=== PATIENT | female | born 1960 | race Caucasian/White ===

== ENCOUNTER → 2017-03-21 | Outpatient (CLI) | payer OTHER ==
[~2017-03-21] MED LIST: DULO60CA6 PO; METH10SO PO; NAPR-688 PO
--- NOTE | 2017-03-22 12:10 | RADRPT ---
PROCEDURE: Right knee radiographs. CLINICAL INDICATION: Right knee pain. TECHNIQUE: Two views. Frontal and lateral. COMPARISON: No prior studies are available for comparison. FINDINGS: There is no fracture or dislocation. There is a small joint effusion. There are severe degenerative changes of the right knee with medial joint compartment narrowing, sub articular sclerosis, and deformity. There is no lytic or blastic lesion. There is no joint effusion. IMPRESSION: 1. Severe degenerative changes of the right knee. 2. No acute abnormality. RPTAT: QQ .Oscar Girard MD, MD Date Time Electronically viewed and signed by .Oscar Girard MD, MD on 03/22/2017 12:09 .R/
--- NOTE | 2017-03-24 14:11 | HKNOTE ---
DATE OF SERVICE: 03/21/2017 CHIEF COMPLAINT: Right knee pain. HISTORY OF THE PRESENT ILLNESS: The patient is a 56-year-old female who is here for evaluation of r ight knee pain. The pain has been ongoing for a number of years. The patient has a history of rheu matoid arthritis and fibromyalgia. She has tried multiple treatments for her right knee including m edications, injections and physical therapy without relief. The pain has now reached a point where it is interfering with routine activities and the right knee is starting to give out. She is consid ering right total knee replacement and is here for further discussion. She had a left knee replacem ent about 2 years ago that was followed by a revision of her knee replacement for loosening of the p rosthesis. PAST MEDICAL HISTORY: Is significant for rheumatoid arthritis, left knee replacement followed by rev thomas. Multiple leg and foot procedures, hysterectomy as well as poor circulation in the lower extr emities. MEDICATIONS: Include: 1. Prednisone 2. Methotrexate. 3. Plaquenil. 4. Methadone. 5. [place]. 6. Vitamins. 7. Cymbalta. 8. Naproxen. REVIEW OF SYSTEMS: Positive for right knee pain, positive for edema of the legs, negative for chest pain or shortness of breath. Examination shows a pleasant female. She is awake, alert and orient ed. Walks with a limp on her right side. Examination of the lower extremities shows a healed incis ion on the left knee with somewhat limited range of motion from 5 to 95 degrees. On the right side, the knee has a significant varus deformity of about 15 degrees. Range of motion of the right knee is 10 to 105 with crepitus. There is severe medial joint line tenderness on the right side with addy e swelling. No instability is noted. Distal circulation is decreased. Pedal pulses are not palpab le. There is some skin discoloration on both legs suggestive of venous stasis and evidence of previ ous surgeries noted on the right ankle. X-rays of the right knee were reviewed and showed advanced osteoarthritis with complete loss of medial joint space and osteophyte formation. Osteopenia is not ed. ASSESSMENT AND PLAN: This is a 56-year-old female with rheumatoid arthritis and severe right knee p ain. She has evidence of osteoarthritis and RA and has reached a point where she wants to schedule a right knee replacement. Risks and benefits of this procedure were discussed with the patient incl uding the added risk of infection and complications due to her autoimmune disease and multiple medic ations. The medications will have to be coordinated with the universal grinder tool and her primary care ph ysician. She will be scheduled for a right knee replacement in the near future. Dictated By: BORIS ANDERSON/NTS Conf#: [id number] DID#: [id number]
== END | disposition home or self-care (01) ==
LOC: HKI 14:10
PROVIDERS: ATTEND Orthopaedic Surgery
DX: M06.9 Rheumatoid arthritis, unspecified (principal); M25.561 Pain in right knee; M17.11 Unilateral primary osteoarthritis, right knee; M85.861 Other specified disorders of bone density and structure, right lower leg; Z96.652 Presence of left artificial knee joint; Z90.710 Acquired absence of both cervix and uterus
CPT/HCPCS: 73560; G0463

== ENCOUNTER 2017-05-20 07:31 | Inpatient (IN) | payer OTHER ==
[~2017-05-20] VITALS: Ht 167.6 cm; Wt 90.2 kg
[2017-05-20] VITALS (26 sets, daily range): BP systolic 115–160; BP diastolic 62–87; PULSE 72–88; RESP 16–20; Ht 167.6 cm; Wt 90.2 kg
[~2017-05-20 07:31] MED LIST changes: +ROPIVACAINE 0.2% 60 ML, CLONIDINE 100 MCG, EPINEPHrine 0.3 MG, KETOROLAC 30 MG, SOD CHL... INJ SCH
--- NOTE | 2017-05-20 07:33 | HPN ---
Date/Time of Note Date/Time of Note DATE: 05/20/17 TIME: 07:33 Interval H&P Admission Note Pt. seen H&P reviewed: No system changes JOSH MCKEON PA-C May 20, 2017 07:33
[2017-05-20] MEDS ORDERED: POLYMYXIN B 500000 UNIT INJ ONE (08:22)
[2017-05-20] MEDS ORDERED: BACITRACIN 50000 UNITS INJ ONE (08:24)
[2017-05-20] MEDS ORDERED: SOD CHLORIDE 0.9% IRR SCH ×2 (08:30)
[2017-05-20] MEDS ORDERED: TRANEXAMIC ACID 1,000 MG in SOD CHLORIDE 0.9% 100 ML IVPB ONE ×4 (08:30)
[2017-05-20] MEDS ORDERED: ACETAMINOPHEN 1000MG/100ML IV 100 ML IVPB ONE (08:30)
[2017-05-20] MEDS ORDERED: DEXAMETHASONE 4 MG/ML 1 ML INJ IV ONE (08:30)
[2017-05-20] MEDS ORDERED: TRANEXAMIC ACID 1000 MG IRR SCH ×2 (08:30)
[2017-05-20] MEDS ORDERED: TRANEXAMIC ACID 1,000 MG in DEXTROSE 5% 100 ML IVPB ONE ×4 (08:30)
[2017-05-20] MEDS ORDERED: ONDANSETRON 4 MG INJ IV ONE (08:30)
[2017-05-20] MEDS ORDERED: LANSOPRAZOLE 30 MG CAP PO ONE (08:30)
[2017-05-20] MEDS ORDERED: FOLI-49 PO (08:35)
[2017-05-20] MEDS ORDERED: PRED2.5T3 PO (08:36)
[2017-05-20] MEDS ORDERED: HYDR200T5 PO (08:37)
[2017-05-20] MEDS ORDERED: MET25 PO (08:37)
[2017-05-20] MEDS ORDERED: METH10TA2 PO (08:39)
[2017-05-20] MEDS ORDERED: HYDR-902 PO (08:40)
[2017-05-20] MEDS ORDERED: [UNRECOGNIZED DRUG - CODE] PO (08:41)
[2017-05-20] MEDS ORDERED: CYAN100T PO (08:42)
[2017-05-20] MEDS ORDERED: CHOL500010 PO (08:43)
[2017-05-20] MEDS ORDERED: PREN-6 PO (08:44)
[2017-05-20] MEDS ORDERED: ALBUTEROL 0.083% (NEB) 2.5 MG/3 ML AMP HHN PRN (09:30)
[2017-05-20] MEDS ORDERED: KETOROLAC 30 MG INJ IV PRN ×2 (09:30→19:30)
[2017-05-20] MEDS ORDERED: OXYCODONE/ACETAMINOPHEN (5/325) TAB PO PRN ×2 (09:30)
[2017-05-20] MEDS ORDERED: ONDANSETRON 4 MG INJ IV PRN (09:30)
[2017-05-20] MEDS ORDERED: DIPHENHYDRAMINE 50 MG INJ IV PRN (09:30)
[2017-05-20] MEDS ORDERED: LABETALOL HCL 20MG INJ IV PRN (09:30)
[2017-05-20] MEDS ORDERED: EPHEDrine SULFATE 50 MG/5 ML SYG IV PRN (09:30)
[2017-05-20] MEDS ORDERED: MIDAZOLAM 1 MG/ML 2 ML INJ IV PRN (09:30)
[2017-05-20] MEDS ORDERED: METOCLOPRAMIDE 10 MG INJ IV PRN (09:30)
[2017-05-20] MEDS ORDERED: MEPERIDINE 25 MG INJ IV PRN (09:30)
[2017-05-20] MEDS ORDERED: FENTAnyl 50 MCG/ML VIAL IV PRN ×3 (09:30)
[2017-05-20] MEDS ORDERED: hydrALAzine 20 MG INJ IV PRN (09:30)
[2017-05-20] MEDS ORDERED: HYDROmorphONE (0.2 MG/ML) 10ML SYG IV PRN ×3 (09:30)
[2017-05-20] MEDS ORDERED: PROPOFOL 20 ML ONE (09:34)
[2017-05-20] MEDS ORDERED: MIDAZOLAM 1 MG/ML 2 ML INJ ONE (09:35)
[2017-05-20] MEDS ORDERED: HYDROCORTISONE 100 MG INJ ONE (09:36)
[2017-05-20] MEDS ORDERED: POLYMYXIN/BACITRACIN 1L IRRIG IRR ONE (10:40)
[2017-05-20] MEDS ORDERED: DEXAMETHASONE 4 MG/ML 1 ML INJ ONE (10:51)
[2017-05-20] MEDS ORDERED: LIDOCAINE 2% (SDV) 5 ML INJ ONE (10:51)
[2017-05-20] MEDS ORDERED: ROCURONIUM 50 MG INJ ONE (10:51)
[2017-05-20] MEDS ORDERED: ONDANSETRON 4 MG INJ ONE (10:51)
[2017-05-20] MEDS ORDERED: ROPIVACAINE 0.5 % 30 ML VIAL ONE (11:07)
--- NOTE | 2017-05-20 11:16 | RADRPT ---
PROCEDURE: X-ray Knee. CLINICAL INDICATION: Post op TECHNIQUE: One view of the right knee were obtained. COMPARISON: 03/21/2017. FINDINGS: Bone mineralization appears decreased. There are postsurgical changes of a knee arthroplasty. Osseous alignment is maintained. No acute fra cture or dislocation. There is soft tissue edema and gas. IMPRESSION: Postsurgical changes of a right knee arthroplasty. No acute osseous abnormality. RPTAT: AAEE Kelle Haas Physician Date Time Electronically viewed and signed by Kelle Haas Physician on 05/20/2017 11:16 PH/
--- NOTE | 2017-05-20 11:45 | SIPON ---
Date/Time of Note Date/Time of Note DATE: 05/20/17 TIME: 11:43 Operative Report Preoperative Diagnosis right knee DJD Postoperative Diagnosis same Operation/Procedure Performed right TKA Surgeon see signature line administrative library assistant Dr. Eb Parker Second assist: JOSH MCKEON PA-C Anesthesia: spinal Estimated blood loss: 150 - 200 ml's Transfusion Required none Specimen bone Grafts/Implants DePuy 6 femur, 5 tibia 10 poly, 38 patella Complications none BORIS HOFF May 20, 2017 11:45
[2017-05-20] MEDS ORDERED: NALOXONE (0.4 MG/ML) INJ IV PRN (12:00)
[2017-05-20] MEDS ORDERED: DIPHENHYDRAMINE 50 MG INJ IM PRN (12:00)
[2017-05-20] MEDS: ACETAMINOPHEN 1000MG/100ML IV 100 ML IVPB SCH ×2 (12:00→20:32)
[2017-05-20] MEDS ORDERED: oxyCODONE 5 MG TAB PO PRN ×2 (12:00)
[2017-05-20] MEDS: CEFAZOLIN 1 GM/50 ML (PMX) 50 ML IVPB SCH ×2 (12:00→21:03)
[2017-05-20] MEDS: ONDANSETRON 4 MG INJ IV SCH ×3 (12:00→23:57)
--- NOTE | 2017-05-20 12:08 | PDOCDIS ---
Discharge Instructions DIAGNOSIS Discharge Diagnosis Status post right total knee arthroplasty CONDITION Patient Condition: Good HOME CARE INSTRUCTIONS: Diet Instructions: Regular ACTIVITY: Activity Restrictions: Slowly Increase Activity Rest between Activity Avoid heavy lifting No Sexual Activity Do not Drive Do not operate Machinery Do not operate Power Tool Avoid Heavy Housework Keep Limb Elevated (2-3 pillows under the foot/ankle while resting. May use cold therapy over surgical dressing.) Weight Bearing (Weightbearing as tolerated with front wheeled walker.) Bathing Restrictions: Shower (Mepilex dressing to remain on until seen postoperatively. Keep surgical wound clean and dry.) FOLLOW UP/APPOINTMENTS Follow-up Plan Follow-up at postoperative appointment provided to you at your preoperative visit. JOSH MCKEON PA-C May 20, 2017 12:08
--- NOTE | 2017-05-20 14:17 | CONS ---
Date/Time of Note Date/Time of Note DATE: 05/20/17 TIME: 14:12 Assessment/Plan Assessment/Plan Problems: (1) Status post total right knee replacement Onset Date: ~ 05/20/2017 Status: Acute Comment: She is immediately postop and doing well. Orthopedic orders have been written by our orthopedic primary. Assuming that all goes well she has excellent rehabilitation potential. (2) Rheumatoid arthritis in remission Status: Chronic Comment: She will continue on her immunologic modulating therapy. I have written the medications. Please note that I do not expect adrenal insufficiency in this setting due to the low dose on the prednisone. (3) Systemic lupus erythematosus Status: Chronic Comment: Quiescent. Qualifiers: Qualified Code: M32.8 - Other forms of systemic lupus erythematosus, unspecified organ involvement status (4) HSV-2 (herpes simplex virus 2) infection Status: Chronic Comment: Continue with suppressive therapy. (5) Chronic pain syndrome Status: Chronic Comment: Continue with her outpatient pain medication regimen in a stable fashion which should make the inpatient regimen relatively straightforward Consultation Date/Type/Reason Admit Date/Time May 20, 2017 at 07:31 Date of Consultation: May 20, 2017 Type of Consultation: Internal medicine Reason for Consultation Postoperative assistance and medication coordination after right total knee replacement Referring Provider: BORIS HOFF Hx of Present Illness Charming 57-year-old female admitted after right total knee replacement. She has an extensive orthopedic history however this is her first significant intervention on the right. She is seen postoperatively on the floor and reports she is doing well. Constitutional: no complaints (Denies fevers chills or sweats) Eyes: no complaints ENT: no complaints Respiratory: no complaints Cardiovascular: no complaints Gastrointestinal: no complaints Genitourinary: no complaints Musculoskeletal: back pain Skin: no complaints Neurologic: no complaints Past Medical History Medical History: other (Rheumatoid arthritis; systemic lupus erythematosus; arthritis; chronic pain syndrome; history of HSV-2) Past Surgical History Past Surgical Hx: appendectomy, other (Status post tonsillectomy; status post laparotomy for ectopic ; status post hysterectomy; status post left total knee replacement; status post left total knee revision; status post right foot surgery with pins 3;) Family History Significant Family History: cancer, other (Parkinson's disease;) Social History Alcohol Use: rarely Smoking Status: Former smoker Drug Use: none Exam/Review of Systems Vital Signs Vitals Vital Signs Date Time Temp Pulse Resp B/P Pulse Ox O2 Delivery O2 Flow Rate FiO2 05/20/17 13:46 97.6 88 20 123/75 97 05/20/17 12:21 Room Air Exam Constitutional: alert, oriented Head: atraumatic, normocephalic Eyes: EOMI, PERRL, nl conjunctiva, nl lids, nl sclera ENMT: mucosa pink and moist, nl external ears & nose, nl lips & teeth, nl nasal mucosa & septum Neck: non-tender, supple Respiratory: clear to auscultation, normal air movement Cardiovascular: nl pulses, regular rate and rhythm Gastrointestinal: nl liver, spleen, non-tender, soft Extremities: normal pulses, other (Right knee bandaged.) Medications Medications Current Medications Ropivacaine/ Clonidine/ Epinephrine/ Ketorolac Tromethamine/ Sodium Chloride ( Naropin 0.2%/ Duraclon/ EPINEPHrine/ Toradol/NS) INTRA-OP INJ Last administered on 05/20/17 10:54; Admin Dose 112.3 ML; Start 05/20/17 at 06:30; Stop 05/20/17 at 23:00 Oxycodone HCl (Roxicodone) 15 mg Q4H PRN PO PAIN LEVEL 8-10; Start 05/20/17 at 12:00 Oxycodone HCl (Roxicodone) 10 mg Q4H PRN PO PAIN LEVEL 4-7; Start 05/20/17 at 12:00 Oxycodone HCl 5 mg 5 mg Q4H PRN PO PAIN LEVEL 1-3; Start 05/20/17 at 12:00 Acetaminophen (Ofirmev 1000mg/ 100ml Iv) 100 ml @ 400 mls/hr Q8H IVPB ; Start 05/20/17 at 12:00; Stop 05/22/17 at 04:14 Ondansetron HCl (Zofran Inj) 4 mg Q6H IV ; Start 05/20/17 at 12:00; Stop at 06:01 Ondansetron HCl 4 mg 4 mg Q4H PRN IV NAUSEA AND/OR VOMITING; Start 05/21/17 at 12:00 Cefazolin Sodium (Ancef 1 Gm/50 ml (Pmx)) 50 ml @ 100 mls/hr Q8H IVPB Last administered on 12/5/17at 12:00; Admin Dose 100 MLS/HR; Start 05/20/17 at 12:00 ; Stop 05/21/17 at 04:29 Aspirin (Ecotrin) 325 mg DAILY PO ; Start 05/21/17 at 09:00 Celecoxib (Celebrex) 200 mg BID PO ; Start 05/21/17 at 09:00 Docusate Sodium (Colace) 200 mg BID PO ; Start 05/21/17 at 09:00; Stop 05/24/17 at 08:59 Diphenhydramine HCl (Benadryl) 25 mg Q4H PRN IM ITCHING OR RASH; Start at 12:00 Naloxone HCl (Narcan) 0.2 mg Q2M PRN IV DECREASED REPIRATORY RATE; Start at 12:00 Hydromorphone HCl (Dilaudid) 1 mg Q3H PRN IV BREAKTHROUGH PAIN; Start 05/20/17 at 12:00 Miscellaneous Information (* Miscellaneous Pharmacy Order) Discontinue current oral sulfonylur... ONCE ONCE XX ; Start 05/20/17 at 14:30; Stop 05/20/17 at 14: 31; Status UNV Diagnostic Test (Pha) (Accu-Chek) 1 ea 02 XX ; Start 05/21/17 at 02:00; Status UNV Miscellaneous Information (* Miscellaneous Pharmacy Order) HYPOGLYCEMIA PROTOCOL w... ONCE ONCE XX ; Start 05/20/17 at 14:30; Stop 05/20/17 at 14:31; Status UNV Miscellaneous Information (* Miscellaneous Pharmacy Order) Discontinue all previ... ONCE ONCE XX ; Start 05/20/17 at 14:30; Stop 05/20/17 at 14:31; Status UNV Cholecalciferol (Vitamin D) 5,000 unit BID PO ; Start 05/20/17 at 21:00; Status UNV Cyanocobalamin (Vitamin B12) 100 mcg DAILY PO ; Start 05/21/17 at 09:00; Status UNV Duloxetine HCl (Cymbalta) 60 mg HS PO ; Start 05/20/17 at 21:00; Status UNV Folic Acid (Folic Acid) 1 mg DAILY PO ; Start 05/21/17 at 09:00; Status UNV Hydroxychloroquine Sulfate (Plaquenil) 200 mg BID PO ; Start 05/20/17 at 21:00; Status UNV Methadone HCl (Methadone) 30 mg TID PO ; Start 05/20/17 at 21:00; Status UNV Prednisone (Prednisone) 2.5 mg QAM PO ; Start 05/21/17 at 09:00; Status UNV Miscellaneous Information 1 tab DAILY PO ; Start 05/21/17 at 09:00; Status UNV LEE OLSON MD May 20, 2017 14:17
[2017-05-20] MEDS ORDERED: Discontinue current oral sulfonylureas (glyburide, glipizide, and/or glimepiride) prior to XX ONE (14:30)
[2017-05-20] MEDS: VALACYCLOVIR 500 MG TAB PO SCH (14:30)
[2017-05-20] MEDS: METHADONE 10 MG TAB PO SCH ×2 (14:53→20:34)
[2017-05-20] MEDS: HYDROmorphONE 1 MG/ML SYG IV PRN ×4 (14:55→23:57)
[2017-05-20] MEDS ORDERED: GLUCOSE GEL 15 GRAM TUBE PO PRN ×2 (15:00)
[2017-05-20] MEDS ORDERED: GLUCAGON 1 MG INJ IM PRN (15:00)
[2017-05-20] MEDS ORDERED: DEXTROSE 50% 50 ML SYRINGE IV PRN ×2 (15:00)
[2017-05-20] MEDS ORDERED: GLUCOSE GEL 15 GRAM TUBE BUCCAL PRN (15:00)
[2017-05-20] MEDS: oxyCODONE 5 MG TAB PO PRN (17:49)
[2017-05-20] MEDS ORDERED: INSULIN ASPART [NOVOLOG] 3 ML PEN SC SCH (17:55)
[2017-05-20] MEDS ORDERED: ACCU-CHEK XX SCH (19:55)
[2017-05-20] MEDS: CHOLECALCIFEROL 1,000 UNIT TAB PO SCH (20:32)
[2017-05-20] MEDS: DULOXETINE 30 MG CAP DR PO SCH (20:33)
[2017-05-20] MEDS: HYDROXYCHLOROQUINE 200 MG TAB PO SCH (20:34)
[2017-05-21] MEDS ORDERED: ACCU-CHEK XX SCH (02:00)
[2017-05-21] MEDS: ACETAMINOPHEN 1000MG/100ML IV 100 ML IVPB SCH ×4 (03:21→21:24)
[2017-05-21] MEDS: BACLOFEN 10 MG TAB PO PRN ×2 (03:55→22:18)
[2017-05-21] MEDS: CEFAZOLIN 1 GM/50 ML (PMX) 50 ML IVPB SCH (03:55)
[2017-05-21 05:24] LABS: ABNORMAL IP MESSAGE 1; BASOPHILS % 0.1 % (0.0-2.0); HEMATOCRIT 33.5 % (37.0-47.0); HEMOGLOBIN 11.2 g/dl (12.0-16.0); LYMPHOCYTES # 0.5 10^3/ul (0.8-2.9); LYMPHOCYTES % 4.8 % (15.0-51.0); MEAN CORPUSCULAR HEMOGLOBIN 32.2 pg (29.0-33.0); MEAN CORPUSCULAR HGB CONC 33.4 g/dl (32.0-37.0); MEAN CORPUSCULAR VOLUME 96.3 fl (82.0-101.0); MEAN PLATELET VOLUME 12.4 fl (7.4-10.4); MONOCYTE # 0.5 10^3/ul (0.3-0.9); MONOCYTES % 4.7 % (0.0-11.0); PLATELET COUNT 163 10^3/UL (140-415); RED BLOOD COUNT 3.48 10^6/ul (4.20-5.40); RED CELL DISTRIBUTION WIDTH 12.5 % (11.5-14.5); WHITE BLOOD COUNT 11.2 10^3/ul (4.8-10.8)
[2017-05-21 05:46] LABS: INR 0.93; PROTIME 12.6 Sec (11.9-14.9)
[2017-05-21 05:52] LABS: CALCIUM 9.3 mg/dl (8.4-10.2); CREATININE 0.74 mg/dl (0.44-1.00)
[2017-05-21] MEDS: ONDANSETRON 4 MG INJ IV SCH (06:18)
[2017-05-21 06:19] LABS: POSITIVE DIFF @See below
[2017-05-21] MEDS: HYDROmorphONE 1 MG/ML SYG IV PRN ×4 (07:36→22:18)
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
[2017-05-21 08:37] VITALS: BP 116/74; RESP 17
[2017-05-21] MEDS: PRENATAL VITAMIN PO SCH (08:45)
[2017-05-21] MEDS: VALACYCLOVIR 500 MG TAB PO SCH (08:45)
[2017-05-21] MEDS: CELECOXIB 200 MG CAP PO SCH ×2 (08:46→21:25)
[2017-05-21] MEDS: DOCUSATE SODIUM 100 MG CAP PO SCH ×2 (08:46→21:26)
[2017-05-21] MEDS: FOLIC ACID 1 MG TAB PO SCH (08:46)
[2017-05-21] MEDS: CYANOCOBALAMIN 100 MCG TAB PO SCH (08:46)
[2017-05-21] MEDS: CHOLECALCIFEROL 1,000 UNIT TAB PO SCH ×2 (08:46→21:25)
[2017-05-21] MEDS: predniSONE 2.5 MG TAB PO SCH (08:46)
[2017-05-21] MEDS: HYDROXYCHLOROQUINE 200 MG TAB PO SCH ×2 (08:46→21:25)
[2017-05-21] MEDS: METHADONE 10 MG TAB PO SCH ×3 (08:47→21:35)
[2017-05-21] MEDS: ASPIRIN (EC) 325 MG TAB PO SCH (08:50)
[2017-05-21] MEDS: oxyCODONE 5 MG TAB PO PRN ×3 (11:06→19:02)
[2017-05-21] MEDS ORDERED: ONDANSETRON 4 MG INJ IV PRN (12:00)
[2017-05-21] MEDS: PANTOPRAZOLE (EC) 40 MG TAB PO SCH (12:50)
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
[2017-05-21 15:54] VITALS: BP 107/69; RESP 19
[2017-05-21 19:14] VITALS: BP 115/65; RESP 18
[2017-05-21] MEDS: DULOXETINE 30 MG CAP DR PO SCH (21:26)
[2017-05-22] MEDS: oxyCODONE 5 MG TAB PO PRN ×2 (01:46→10:17)
[2017-05-22 01:50] VITALS: BP 134/76; RESP 16
[2017-05-22] MEDS: ACETAMINOPHEN 1000MG/100ML IV 100 ML IVPB SCH (03:25)
[2017-05-22] MEDS: HYDROmorphONE 1 MG/ML SYG IV PRN ×2 (03:32→08:30)
[2017-05-22 05:16] LABS: BASOPHILS % 0.4 % (0.0-2.0); EOSINOPHILS % 0.6 % (0.0-7.0); HEMATOCRIT 32.2 % (37.0-47.0); HEMOGLOBIN 10.7 g/dl (12.0-16.0); LYMPHOCYTES # 1.8 10^3/ul (0.8-2.9); LYMPHOCYTES % 24.6 % (15.0-51.0); MEAN CORPUSCULAR HEMOGLOBIN 32.3 pg (29.0-33.0); MEAN CORPUSCULAR HGB CONC 33.2 g/dl (32.0-37.0); MEAN CORPUSCULAR VOLUME 97.3 fl (82.0-101.0); MEAN PLATELET VOLUME 12.5 fl (7.4-10.4); MONOCYTE # 0.5 10^3/ul (0.3-0.9); MONOCYTES % 7.2 % (0.0-11.0); NEUTROPHIL # 4.8 10^3/ul (1.6-7.5); NEUTROPHILS % 66.9 % (39.0-77.0); PLATELET COUNT 135 10^3/UL (140-415); RED BLOOD COUNT 3.31 10^6/ul (4.20-5.40); WHITE BLOOD COUNT 7.1 10^3/ul (4.8-10.8)
[2017-05-22 05:30] LABS: INR 0.93; PROTIME 12.6 Sec (11.9-14.9)
[2017-05-22 05:47] LABS: CALCIUM 8.9 mg/dl (8.4-10.2); CREATININE 0.75 mg/dl (0.44-1.00); POTASSIUM 3.4 mmol/L (3.5-5.1)
[2017-05-22] MEDS: PANTOPRAZOLE (EC) 40 MG TAB PO SCH (05:57)
[2017-05-22 08:19] VITALS: BP 126/59; RESP 18
[2017-05-22] MEDS: PRENATAL VITAMIN PO SCH (08:28)
[2017-05-22] MEDS: predniSONE 2.5 MG TAB PO SCH (08:28)
[2017-05-22] MEDS: CHOLECALCIFEROL 1,000 UNIT TAB PO SCH (08:28)
[2017-05-22] MEDS: DOCUSATE SODIUM 100 MG CAP PO SCH (08:28)
[2017-05-22] MEDS: CYANOCOBALAMIN 100 MCG TAB PO SCH (08:29)
[2017-05-22] MEDS: FOLIC ACID 1 MG TAB PO SCH (08:29)
[2017-05-22] MEDS: METHADONE 10 MG TAB PO SCH (08:29)
[2017-05-22] MEDS: ASPIRIN (EC) 325 MG TAB PO SCH (08:30)
[2017-05-22] MEDS: CELECOXIB 200 MG CAP PO SCH (08:30)
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
[2017-05-22] MEDS: VALACYCLOVIR 500 MG TAB PO SCH (09:00)
[2017-05-22] MEDS: HYDROXYCHLOROQUINE 200 MG TAB PO SCH (10:17)
--- NOTE | 2017-05-22 16:01 | DS ---
Date/Time of Note Date/Time of Note DATE: 05/22/17 TIME: 15:59 Discharge Summary Admission/Discharge Info Admit Date/Time May 20, 2017 at 07:31 Discharge Date/Time May 22, 2017 at 11:49 Discharge Diagnosis Status post right total knee arthroplasty Patient Condition: Good Hospital Course On the day of admission, the patient underwent Right total knee Arthroplasty Intraoperative complications: None Postoperative complications: None The patient was given prophylactic antibiotics and anticoagulants. On the day of surgery and first postoperative day patient was started on gait training and was taught usual restrictions following Knee replacement On postoperative day 1 dressing was clean dry and intact. No complications were observed. On the day of discharge, the wound was clean and healing well; there was no sign of infection. Wound care instructions were discussed with the patient. Discharge Temperature: 97.7 Discharge White Blood Cell Count: 10.1 Discharge Hemoglobin: 7.7 The patient was discharged home with home health. Arrangements were made for visiting nurses and home health/physical therapy. The patient will be seen in office at scheduled postoperative evaluation date given on their preoperative exam. Should patient complain of any problems prior to scheduled postoperative evaluation date, they may call into outpatient clinic to determine if they need to be scheduled at sooner appointment to be seen immediately if needed. Discharge medications: As per medication reconciliation form Diet: Same as preadmission diet. This is Josh Mg PA-C dictating discharge summary for Dr. Pereyra. Home Meds Reported Medications Vits #93-Iron Fum-FA ( Formula) 1 Each Tablet, 1 TAB PO DAILY, TAB 05/20/17 Cholecalciferol (Vitamin D3) 5,000 Unit Tablet, 5000 UNIT PO BID, TAB 05/20/17 Cyanocobalamin* (Vitamin B-12*) 100 Mcg Tablet, 100 MCG PO DAILY, TAB 05/20/17 Chromium Amino Acid Chelate (Chromium) 400 Mcg Tablet, 1000 MCG PO DAILY, TAB 05/20/17 Hydrocodone/Acetaminophen ([place] 10-325 Tablet) 1 Each Tablet, 1 EACH PO Q4 Y for PAIN, TAB 05/20/17 Methadone Hcl* (Methadone*) 10 Mg Tab, 30 MG PO TID, TAB 05/20/17 Hydroxychloroquine Sulfate* (Plaquenil*) 200 Mg Tab, 200 MG PO BID, TAB 05/20/17 Methotrexate* (Methotrexate*) 2.5 Mg Tab, 20 MG PO EVERY FRIDAY, TAB 05/20/17 Prednisone* (Prednisone*) 2.5 Mg Tablet, 2.5 MG PO QAM, TAB 05/20/17 Folic Acid* (Folic Acid*) 1 Mg Tablet, 1 MG PO DAILY, TAB 05/20/17 Duloxetine Hcl* (Cymbalta*) 60 Mg Capsule.dr, 60 MG PO HS, CAP 02/01/15 Discontinued Reported Medications Naproxen* (Naproxen*) 500 Mg Tablet, 500 MG PO Q6 Y for LISA, TAB 02/01/15 Methadone Hcl* (Methadone Hcl*) 10 Mg/5 Ml Solution, 10 MG PO Q6, ML 02/01/15 Follow-up Plan Follow-up at postoperative appointment provided to you at your preoperative visit. Primary Care Provider Not On Staff Doctor Pending Labs Laboratory Tests Test 05/22/17 04:29 White Blood Count 7.110^3/ul (4.8-10.8) Red Blood Count 3.3110^6/ul (4.20-5.40) Hemoglobin 10.7g/dl (12.0-16.0) Hematocrit 32.2% (37.0-47.0) Mean Corpuscular Volume 97.3fl (82.0-101.0) Mean Corpuscular Hemoglobin 32.3pg (29.0-33.0) Mean Corpuscular Hemoglobin Concent 33.2g/dl (32.0-37.0) Red Cell Distribution Width 13.0% (11.5-14.5) Platelet Count 66371^3/UL (140-415) Mean Platelet Volume 12.5fl (7.4-10.4) Neutrophils % 66.9% (39.0-77.0) Lymphocytes % 24.6% (15.0-51.0) Monocytes % 7.2% (0.0-11.0) Eosinophils % 0.6% (0.0-7.0) Basophils % 0.4% (0.0-2.0) Nucleated Red Blood Cells % 0.0/100WBC (0.0-0.0) Neutrophils # 4.810^3/ul (1.6-7.5) Lymphocytes # 1.810^3/ul (0.8-2.9) Monocytes # 0.510^3/ul (0.3-0.9) Eosinophils # 0.010^3/ul (0.0-0.5) Basophils # 0.010^3/ul (0.0-0.1) Nucleated Red Blood Cells # 0.010^3/ul (0.0-0.0) Prothrombin Time 12.6Sec (11.9-14.9) Prothrombin Time Ratio 1.0 INR International Normalized Ratio 0.93 Sodium Level 140mmol/L (135-144) Potassium Level 3.4mmol/L (3.5-5.1) Chloride Level 98mmol/L (97-110) Carbon Dioxide Level 35mmol/L (21-31) Anion Gap 10 (8-16) Blood Urea Nitrogen 12mg/dl (7-20) Creatinine 0.75mg/dl (0.44-1.00) Glucose Level 116mg/dl (70-220) Calcium Level 8.9mg/dl (8.4-10.2) JOSH MCKEON PA-C May 22, 2017 16:01
== END 2017-05-22 11:49 | disposition home health service (06) | DRG 470 ==
LOC: REC 07:31 → MS1 13:42
PROVIDERS: ADMIT Orthopaedic Surgery; ATTEND Orthopaedic Surgery
PROC: 0SRC0J9 Replacement of Right Knee Joint with Synthetic Substitute, Cemented, Open Approach (ICD-10-PCS; principal; 2017-05-20 09:00)
DX: M17.11 Unilateral primary osteoarthritis, right knee (principal); M06.9 Rheumatoid arthritis, unspecified; B00.9 Herpesviral infection, unspecified; L93.0 Discoid lupus erythematosus; G89.4 Chronic pain syndrome
CPT/HCPCS: 73560; 80048; 83036; 85025; 85610; 86850; 86900; 86901; 97110; 97116; 97162; 97530; C1713; C1776; J0131; J0171; J0690; J0735; J1100; J1170; J1720; J1815; J1885; J2250; J2405; J2795; J3010; J3420; J7512

== ENCOUNTER → 2017-05-30 | Outpatient (CLI) | payer OTHER ==
[~2017-05-30] MED LIST changes: +CHOL500010 PO; +CYAN100T PO; +FOLI-49 PO; +HYDR-902 PO; +HYDR200T5 PO; +MET25 PO; -METH10SO PO; +METH10TA2 PO; -NAPR-688 PO; +PRED2.5T3 PO; +PREN-6 PO; -ROPIVACAINE 0.2% 60 ML, CLONIDINE 100 MCG, EPINEPHrine 0.3 MG, KETOROLAC 30 MG, SOD CHL... INJ SCH; +[UNRECOGNIZED DRUG - CODE] PO
--- NOTE | 2017-05-30 14:52 | PN ---
Date/Time of Note Date/Time of Note DATE: 05/30/17 TIME: 14:47 Outpatient Progress Note Chief Complaint Postop status post right total knee replacement HPI 57-year-old female presents today for postoperative appointment status post right total knee arthroplasty performed on 05/20/2017. Patient states that she has been doing very well since discharge from the hospital. Mild pain complaints, typically with range of motion and weightbearing. She denies any falls or injury. Denies any complications to the wound. Denies any chest pain/ tightness. She does have complaints of right calf pain however. History is significant for sclerotherapy for varicose veins in the past but on the nonoperative leg. Denies any shortness of breath or difficulty breathing. Presents today for postoperative x-ray and evaluation. Review of Systems Const: No Fever, no chills, no Fatigue, normal appetite, no diaphoresis. Resp: No SOB, no wheezing, no chest pain. CV: No chest pain, no palpitaions, no REYNA. Physical Exam Blood pressure is 165/88, temperature is 97.9, pulse is 66, respiratory rate is 14, height is 5 foot 6 inches, weight is 200 pounds General Appearance: well-developed, well-nourished, in no acute distress. Right knee: Surgical wound is clean dry and intact and healing well. No signs of infection. Mild to moderate edema to the right lower extremity with 2+ pitting edema to the calf/ankle. No signs of any foot drop. Patient is able to fully extend the knee with flexion up to 80. Passive range of motion yields 80 flexion as well with discomfort at maximum point of flexion. Positive Homans sign. Normal sensory examination to light touch. Toes freely movable with 2+ dorsalis pedis pulse. Gait showing slight limp but walking independently without use of assisted ambulatory device. Imaging: X-ray of the Right knee performed on 05/30/2017 showing all components appearing well aligned, attached and integrated to the bone. No signs of any lucency between metal and bone. Allergies Coded Allergies: No Known Allergy (Unverified , 05/20/17) Assessment/Plan Problems: (1) Status post total right knee replacement * Prescription for venous Doppler to the right lower extremity provided today for rule out of DVT. Low suspicion however, patient encouraged to schedule appointment as soon as possible. Emergency room precautions given. * Patient has complaints of spasming to the muscle surrounding the knee. Prescription for tizanidine 4 mg 1 tab p.o. 3 times daily as needed spasm #30 provided today for as needed use. * Continue DVT prophylaxis with aspirin for 1 month status post surgery. * Prescription to initiate outpatient physical therapy to the right knee with focus on range of motion, strengthening as well as gait training provided for patient today. * Follow-up 6 weeks status post surgery for repeat evaluation and x-ray. Patient may follow-up sooner should there be any issue. Medications Home Meds Reported Medications Vits #93-Iron Fum-FA ( Formula) 1 Each Tablet, 1 TAB PO DAILY, TAB 05/20/17 Cholecalciferol (Vitamin D3) 5,000 Unit Tablet, 5000 UNIT PO BID, TAB 05/20/17 Cyanocobalamin* (Vitamin B-12*) 100 Mcg Tablet, 100 MCG PO DAILY, TAB 05/20/17 Chromium Amino Acid Chelate (Chromium) 400 Mcg Tablet, 1000 MCG PO DAILY, TAB 05/20/17 Hydrocodone/Acetaminophen ([place] 10-325 Tablet) 1 Each Tablet, 1 EACH PO Q4 Y for PAIN, TAB 05/20/17 Methadone Hcl* (Methadone*) 10 Mg Tab, 30 MG PO TID, TAB 05/20/17 Hydroxychloroquine Sulfate* (Plaquenil*) 200 Mg Tab, 200 MG PO BID, TAB 05/20/17 Methotrexate* (Methotrexate*) 2.5 Mg Tab, 20 MG PO EVERY FRIDAY, TAB 05/20/17 Prednisone* (Prednisone*) 2.5 Mg Tablet, 2.5 MG PO QAM, TAB 05/20/17 Folic Acid* (Folic Acid*) 1 Mg Tablet, 1 MG PO DAILY, TAB 05/20/17 Duloxetine Hcl* (Cymbalta*) 60 Mg Capsule., 60 MG PO HS, CAP 02/01/15 JOSH MCKEON PA-C May 30, 2017 14:52
== END | disposition home or self-care (01) ==
LOC: HKI 13:34
PROVIDERS: ATTEND Orthopaedic Surgery
DX: Z09 Encounter for follow-up examination after completed treatment for conditions other than malignant neoplasm (principal); Z96.651 Presence of right artificial knee joint

== ENCOUNTER → 2017-07-04 | Outpatient (CLI) | END | disposition home or self-care (01) ==

== ENCOUNTER → 2017-07-18 | Outpatient (CLI) | END | disposition home or self-care (01) ==

== ENCOUNTER → 2017-08-08 | Outpatient (CLI) | END | disposition home or self-care (01) ==

== ENCOUNTER → 2017-08-22 | Outpatient (CLI) | END | disposition home or self-care (01) ==